=== PATIENT | male | born 1985 | race Two or more races ===

== ENCOUNTER 2020-05-22 00:55 | Emergency (ER) | payer SELFPAY ==
[~2020-05-22] VITALS: Ht 172.7 cm; Wt 66.0 kg
[2020-05-22 01:14] VITALS: BP 132/74
== END 2020-05-22 03:01 | disposition left against medical advice (07) ==
LOC: EMS 00:58
DX: H92.03 Otalgia, bilateral (principal); Z53.21 Procedure and treatment not carried out due to patient leaving prior to being seen by health care provider